=== PATIENT | male | born 1985 | race Caucasian/White ===

== ENCOUNTER 2025-06-19 06:07 | Day surgery (SDC) | payer BC, SELFPAY ==
[2025-06-19 13:08] VITALS: BMI 28.7
[2025-06-19 13:09] VITALS: BP 125/76; BMI 28.7
[2025-06-19] MEDS: TYLENOL 1000 MG PO (13:12)
[2025-06-19] MEDS: NORMOSOL-R/PLASMALYTE-A 1000 IV (13:39)
[2025-06-19 16:35] VITALS: BP 119/70; BP 125/76
[2025-06-19 16:45] VITALS: BP 124/77
--- NOTE | 2025-06-19 16:52 | W.IMMPOSTOP ---
Surgical Immed Post Op Note
-
Primary Surgeon: Mauri Rea MD
Assisting Surgeon:
Pre-op Diagnosis: Right knee medial meniscus tear
Post-op Diagnosis: Right knee medial meniscus tear
Procedure Performed: arthroscopic right knee partial medial meniscectomy
Anesthesia Type: general
Specimen / Cultures: none
Estimated Blood Loss: 2mL
Complications: none apparent
Operative Findings: grade 1 chondrosis patella; radial tear posterior horn medial meniscus
Tourniquet time: 25 minutes @ 250 mmHg
Operative dictation #: [id number]
[2025-06-19 17:00] VITALS: BP 135/80
[2025-06-19 17:05] VITALS: BP 135/80
[2025-06-19 17:20] VITALS: BP 121/81
== END 2025-06-19 18:19 | disposition home or self-care (01) ==
LOC: SDS 06:07
PROVIDERS: ATTENDING PHYSICIAN Student in an Organized Health Care Education/Training Program
DX: S83.241A Other tear of medial meniscus, current injury, right knee, initial encounter (principal); X58.XXXA Exposure to other specified factors, initial encounter
CPT/HCPCS: 29881